=== PATIENT | male | born 1950 | race Caucasian/White ===

== ENCOUNTER 2018-03-27 17:12 | Emergency (ER) | payer OTHER ==
[2018-03-27 17:59] LABS: ADD MAN DIFF? NO
[2018-03-27 18:00] LABS: WHITE BLOOD COUNT 6.8 10^3/ul (4.8-10.8)
[2018-03-27 18:00] LABS: BASOPHIL # 0.1 10^3/ul (0.0-0.1); EOSINOPHILS # 0.1 10^3/ul (0.0-0.5); EOSINOPHILS % 1.8 % (0.0-7.0); HEMATOCRIT 24.1 % (42.0-52.0); HEMOGLOBIN 7.7 g/dl (14.0-18.0); LYMPHOCYTES # 1.3 10^3/ul (0.8-2.9); LYMPHOCYTES % 19.2 % (15.0-51.0); MEAN CORPUSCULAR HEMOGLOBIN 27.9 pg (29.0-33.0); MEAN CORPUSCULAR VOLUME 87.3 fl (82.0-101.0); MEAN PLATELET VOLUME 9.8 fl (7.4-10.4); MONOCYTE # 0.9 10^3/ul (0.3-0.9); MONOCYTES % 13.8 % (0.0-11.0); NEUTROPHIL # 4.3 10^3/ul (1.6-7.5); NEUTROPHILS % 63.9 % (39.0-77.0); PLATELET COUNT 174 10^3/UL (140-415); RED BLOOD COUNT 2.76 10^6/ul (4.70-6.10); RED CELL DISTRIBUTION WIDTH 16.8 % (11.5-14.5)
[2018-03-27 18:18] LABS: ALANINE AMINOTRANSFERASE 40 IU/L (13-69); ALBUMIN/GLOBULIN RATIO 1.03; ALKALINE PHOSPHATASE 140 IU/L (42-121); ANION GAP 14 (8-16); ASPARTATE AMINO TRANSFERASE 40 IU/L (15-46); BILIRUBIN,INDIRECT 0.4 mg/dl (0-1.1); BILIRUBIN,TOTAL 0.4 mg/dl (0.2-1.3); BLOOD UREA NITROGEN 15 mg/dl (7-20); CALCIUM 8.3 mg/dl (8.4-10.2); CARBON DIOXIDE 25 mmol/L (21-31); CHLORIDE 103 mmol/L (97-110); CREATININE 0.71 mg/dl (0.61-1.24); GLUCOSE 122 mg/dl (70-220); MAGNESIUM 1.6 mg/dl (1.7-2.5); POTASSIUM 3.6 mmol/L (3.5-5.1); SODIUM 138 mmol/L (135-144); TOTAL PROTEIN 5.9 g/dl (6.1-8.1)
[2018-03-27 18:25] LABS: PROTIME 15.4 Sec (11.9-14.9); PT RATIO 1.2
[2018-03-27 18:26] LABS: B-TYPE NATRIURETIC PEPTIDE 228 PG/ML (0-125); PARTIAL THROMBOPLASTIN TIME 30.5 Sec (25.0-35.0)
[2018-03-27] MEDS: MAGNESIUM OXIDE 400 MG TAB PO (20:03)
== END 2018-03-27 20:17 | disposition home or self-care (01) ==
LOC: E/R 20:17
DX: K74.60 Unspecified cirrhosis of liver (principal); R60.0 Localized edema; E83.42 Hypomagnesemia; D64.9 Anemia, unspecified; E11.9 Type 2 diabetes mellitus without complications
CPT/HCPCS: 36415; 71045; 76700; 80053; 83735; 83880; 85025; 85610; 85730; 93005; 93970; 99285-25

== ENCOUNTER 2018-07-20 09:18 | Day surgery (SDC) | payer OTHER ==
[2018-07-20] MEDS ORDERED: PROPOFOL 20 ML (10:16)
[2018-07-20] MEDS ORDERED: FENTAnyl 50 MCG/ML VIAL (10:16)
[2018-07-20] MEDS ORDERED: CEFAZOLIN 1 GM/50 ML (PMX) 50 ML IVPB (10:16)
[2018-07-20] MEDS ORDERED: EPHEDrine 50 MG INJ (10:36)
== END 2018-07-20 11:18 | disposition home or self-care (01) ==
LOC: GIL 09:18
DX: I85.00 Esophageal varices without bleeding (principal); K64.8 Other hemorrhoids; K76.6 Portal hypertension; K31.89 Other diseases of stomach and duodenum; K62.89 Other specified diseases of anus and rectum; D50.9 Iron deficiency anemia, unspecified; E11.9 Type 2 diabetes mellitus without complications
CPT/HCPCS: 43235; 82962

== ENCOUNTER 2018-08-03 09:08 | Inpatient (IN) | payer OTHER ==
[2018-08-03 11:10] LABS: ADD MAN DIFF? NO
[2018-08-03 11:13] LABS: WHITE BLOOD COUNT 7.8 10^3/ul (4.8-10.8)
[2018-08-03 11:13] LABS: BASOPHIL # 0.1 10^3/ul (0.0-0.1); BASOPHILS % 0.6 % (0.0-2.0); EOSINOPHILS # 0.1 10^3/ul (0.0-0.5); EOSINOPHILS % 1.7 % (0.0-7.0); HEMATOCRIT 27.4 % (42.0-52.0); HEMOGLOBIN 8.9 g/dl (14.0-18.0); LYMPHOCYTES # 0.9 10^3/ul (0.8-2.9); MEAN CORPUSCULAR HGB CONC 32.5 g/dl (32.0-37.0); MEAN PLATELET VOLUME 8.8 fl (7.4-10.4); MONOCYTE # 1.4 10^3/ul (0.3-0.9); NEUTROPHIL # 5.1 10^3/ul (1.6-7.5); PLATELET COUNT 165 10^3/UL (140-415); RED CELL DISTRIBUTION WIDTH 20.5 % (11.5-14.5)
[2018-08-03 11:32] LABS: INR 1.02; PROTIME 13.5 Sec (11.9-14.9); PT RATIO 1.1
[2018-08-03 11:33] LABS: PARTIAL THROMBOPLASTIN TIME 30.4 Sec (23.0-35.0)
[2018-08-03 11:36] LABS: ALANINE AMINOTRANSFERASE 40 IU/L (13-69); ALBUMIN 3.1 g/dl (3.3-4.9); ALBUMIN/GLOBULIN RATIO 0.96; ALKALINE PHOSPHATASE 358 IU/L (42-121); ANION GAP 11 (5-13); ASPARTATE AMINO TRANSFERASE 42 IU/L (15-46); BILIRUBIN,INDIRECT 0.4 mg/dl (0-1.1); BILIRUBIN,TOTAL 0.4 mg/dl (0.2-1.3); BLOOD UREA NITROGEN 13 mg/dl (7-20); CALCIUM 8.3 mg/dl (8.4-10.2); CARBON DIOXIDE 19 mmol/L (21-31); CHLORIDE 95 mmol/L (97-110); Estimated GFR > 60 mL/min (>60); GLUCOSE 196 mg/dl (70-220); LIPASE 322 U/L (23-300); POTASSIUM 4.7 mmol/L (3.5-5.1); SODIUM 125 mmol/L (135-144); TOTAL PROTEIN 6.3 g/dl (6.1-8.1)
[2018-08-03] MEDS ORDERED: ONDANSETRON 4 MG INJ IV ×2 (13:30→14:00)
[2018-08-03] MEDS ORDERED: ACETAMINOPHEN 325 MG TAB PO ×2 (13:30→14:00)
[2018-08-03] MEDS ORDERED: morphine 2 MG INJ IV (14:00)
[2018-08-03] MEDS ORDERED: HYDROCODONE/APAP (5/325) TAB PO (14:00)
[2018-08-03] MEDS ORDERED: NACL 0.9% 3 ML SYG IV (14:00)
[2018-08-03 15:50] LABS: URIC ACID 3.8 mg/dl (3.1-7.9)
[2018-08-03] MEDS ORDERED: DEXTROSE 50% 50 ML SYRINGE IV ×2 (16:00)
[2018-08-03] MEDS ORDERED: GLUCAGON 1 MG INJ IM (16:00)
[2018-08-03] MEDS ORDERED: GLUCOSE GEL 15 GRAM TUBE PO ×2 (16:00)
[2018-08-03] MEDS ORDERED: GLUCOSE GEL 15 GRAM TUBE BUCCAL (16:00)
[2018-08-03 17:03] LABS: ANION GAP 8 (5-13); BLOOD UREA NITROGEN 11 mg/dl (7-20); CALCIUM 8.2 mg/dl (8.4-10.2); CARBON DIOXIDE 19 mmol/L (21-31); CHLORIDE 97 mmol/L (97-110); CREATININE 0.47 mg/dl (0.61-1.24); Estimated GFR > 60 mL/min (>60); GLUCOSE 203 mg/dl (70-220); POTASSIUM 4.9 mmol/L (3.5-5.1); SODIUM 124 mmol/L (135-144)
[2018-08-03 17:11] LABS: ADD UMIC NO; UR ASCORBIC ACID NEGATIVE (NEGATIVE); UR BILIRUBIN (Dip) NEGATIVE (NEGATIVE); UR BLOOD (Dip) NEGATIVE (NEGATIVE); UR CLARITY CLEAR (CLEAR); UR COLOR YELLOW (YELLOW); UR GLUCOSE (Dip) NEGATIVE (NEGATIVE); UR KETONES (Dip) NEGATIVE (NEGATIVE); UR LEUKOCYTE ESTERASE (Dip) NEGATIVE Leu/ul (NEGATIVE); UR NITRITE (Dip) NEGATIVE (NEGATIVE); UR SPECIFIC GRAVITY (Dip) 1.021 (1.003-1.030); UR TOTAL PROTEIN (Dip) NEGATIVE (NEGATIVE); UR UROBILINOGEN (Dip) 2+ mg/dL (NEGATIVE)
[2018-08-03 17:21] LABS: OSMOLALITY,URINE 622 mOsm/kg (250-1200)
[2018-08-03 17:26] LABS: CREATININE,URINE RANDOM 113.31 mg/dl (20-370)
[2018-08-03 17:26] LABS: SODIUM,URINE RANDOM 62 mmol/L (30-90)
[2018-08-03 17:27] LABS: PROTEIN URINE < 5.0 mg/dl (0.0-11.9)
[2018-08-03] MEDS: INSULIN ASPART [NOVOLOG] 3 ML PEN SC ×3 (17:49→21:00)
[2018-08-03] MEDS: PROPRANOLOL 10 MG TAB PO (22:11)
[2018-08-03] MEDS: INSULIN GLARGINE [LANTus] (100 UNITS/ML) SYG SC (22:16)
[2018-08-04] MEDS: ACCU-CHEK XX (02:00)
[2018-08-04] MEDS: PANTOPRAZOLE (EC) 40 MG TAB PO (06:10)
[2018-08-04 06:41] LABS: ADD MAN DIFF? NO
[2018-08-04 06:45] LABS: WHITE BLOOD COUNT 6.9 10^3/ul (4.8-10.8)
[2018-08-04 06:45] LABS: BASOPHILS % 0.6 % (0.0-2.0); EOSINOPHILS # 0.2 10^3/ul (0.0-0.5); EOSINOPHILS % 2.2 % (0.0-7.0); HEMATOCRIT 23.3 % (42.0-52.0); HEMOGLOBIN 7.9 g/dl (14.0-18.0); LYMPHOCYTES # 1.1 10^3/ul (0.8-2.9); LYMPHOCYTES % 15.3 % (15.0-51.0); MEAN CORPUSCULAR HEMOGLOBIN 27.4 pg (29.0-33.0); MEAN CORPUSCULAR HGB CONC 33.9 g/dl (32.0-37.0); MEAN CORPUSCULAR VOLUME 80.9 fl (82.0-101.0); MEAN PLATELET VOLUME 8.9 fl (7.4-10.4); MONOCYTE # 1.2 10^3/ul (0.3-0.9); MONOCYTES % 17.5 % (0.0-11.0); NEUTROPHIL # 4.2 10^3/ul (1.6-7.5); NEUTROPHILS % 61.3 % (39.0-77.0); PLATELET COUNT 156 10^3/UL (140-415); RED BLOOD COUNT 2.88 10^6/ul (4.70-6.10); RED CELL DISTRIBUTION WIDTH 19.9 % (11.5-14.5)
[2018-08-04 06:53] LABS: HEMOGLOBIN A1C 8.1 % (0-5.9)
[2018-08-04 07:09] LABS: PHOSPHORUS 4.2 mg/dl (2.5-4.9)
[2018-08-04 07:09] LABS: LIPASE 278 U/L (23-300)
[2018-08-04 07:12] LABS: ALANINE AMINOTRANSFERASE 41 IU/L (13-69); ALBUMIN 2.6 g/dl (3.3-4.9); ALBUMIN/GLOBULIN RATIO 1.04; ALKALINE PHOSPHATASE 203 IU/L (42-121); ANION GAP 8 (5-13); ASPARTATE AMINO TRANSFERASE 36 IU/L (15-46); BILIRUBIN,INDIRECT 0.5 mg/dl (0-1.1); BILIRUBIN,TOTAL 0.5 mg/dl (0.2-1.3); BLOOD UREA NITROGEN 10 mg/dl (7-20); CARBON DIOXIDE 20 mmol/L (21-31); CHLORIDE 98 mmol/L (97-110); CREATININE 0.52 mg/dl (0.61-1.24); Estimated GFR > 60 mL/min (>60); GLUCOSE 112 mg/dl (70-220); MAGNESIUM 1.6 mg/dl (1.7-2.5); POTASSIUM 4.5 mmol/L (3.5-5.1); SODIUM 126 mmol/L (135-144); TOTAL PROTEIN 5.1 g/dl (6.1-8.1)
[2018-08-04] MEDS: INSULIN ASPART [NOVOLOG] 3 ML PEN SC ×7 (07:55→20:57)
[2018-08-04] MEDS: PROPRANOLOL 10 MG TAB PO ×2 (08:16→20:58)
[2018-08-04] MEDS: FUROSEMIDE 20 MG INJ IV (10:14)
[2018-08-04 16:47] LABS: CREATININE, RANDOM URINE 108 mg/dL (20-320); MICROALBUMIN 1.1 mg/dL; MICROALBUMIN/CREATININE RATIO 10 (<30)
[2018-08-04] MEDS: INSULIN GLARGINE [LANTus] (100 UNITS/ML) SYG SC (21:14)
[2018-08-05] MEDS: ACCU-CHEK XX (02:00)
[2018-08-05] MEDS: FUROSEMIDE 20 MG INJ IV (05:38)
[2018-08-05] MEDS: PANTOPRAZOLE (EC) 40 MG TAB PO (05:38)
[2018-08-05 07:40] LABS: ANION GAP 8 (5-13); BLOOD UREA NITROGEN 14 mg/dl (7-20); CALCIUM 8.2 mg/dl (8.4-10.2); CARBON DIOXIDE 21 mmol/L (21-31); CHLORIDE 97 mmol/L (97-110); CREATININE 0.59 mg/dl (0.61-1.24); Estimated GFR > 60 mL/min (>60); GLUCOSE 131 mg/dl (70-220); MAGNESIUM 1.6 mg/dl (1.7-2.5); PHOSPHORUS 4.6 mg/dl (2.5-4.9); POTASSIUM 4.4 mmol/L (3.5-5.1); SODIUM 126 mmol/L (135-144)
[2018-08-05] MEDS: INSULIN ASPART [NOVOLOG] 3 ML PEN SC ×7 (07:55→20:28)
[2018-08-05] MEDS: PROPRANOLOL 10 MG TAB PO ×2 (08:04→20:28)
[2018-08-05] MEDS: SOD CHLORIDE 0.9% 500 ML IV (08:12)
[2018-08-05] MEDS: SPIRONOLACTONE 50 MG TAB PO (13:17)
[2018-08-05] MEDS: INSULIN GLARGINE [LANTus] (100 UNITS/ML) SYG SC (21:25)
[2018-08-05] MEDS ORDERED: VITAMIN A & D 5 GM OINT PACKET TOP (21:34)
[2018-08-06] MEDS: ACCU-CHEK XX (02:00)
[2018-08-06] MEDS: SPIRONOLACTONE 50 MG TAB PO (05:30)
[2018-08-06] MEDS: PANTOPRAZOLE (EC) 40 MG TAB PO (05:30)
[2018-08-06] MEDS: FUROSEMIDE 20 MG INJ IV (05:31)
[2018-08-06 07:42] LABS: ANION GAP 9 (5-13); BLOOD UREA NITROGEN 16 mg/dl (7-20); CALCIUM 8.3 mg/dl (8.4-10.2); CARBON DIOXIDE 19 mmol/L (21-31); CHLORIDE 99 mmol/L (97-110); CREATININE 0.72 mg/dl (0.61-1.24); Estimated GFR > 60 mL/min (>60); GLUCOSE 121 mg/dl (70-220); MAGNESIUM 1.7 mg/dl (1.7-2.5); PHOSPHORUS 4.4 mg/dl (2.5-4.9); POTASSIUM 4.3 mmol/L (3.5-5.1); SODIUM 127 mmol/L (135-144)
[2018-08-06] MEDS: PROPRANOLOL 10 MG TAB PO ×2 (07:44→20:12)
[2018-08-06] MEDS: INSULIN ASPART [NOVOLOG] 3 ML PEN SC ×7 (07:48→20:11)
[2018-08-06] MEDS: INSULIN GLARGINE [LANTus] (100 UNITS/ML) SYG SC (20:22)
[2018-08-07] MEDS: ACCU-CHEK XX (02:23)
[2018-08-07] MEDS: FUROSEMIDE 20 MG INJ IV (05:44)
[2018-08-07] MEDS: SPIRONOLACTONE 50 MG TAB PO (05:44)
[2018-08-07] MEDS: PANTOPRAZOLE (EC) 40 MG TAB PO (05:44)
[2018-08-07 06:22] LABS: ADD MAN DIFF? NO
[2018-08-07 06:24] LABS: WHITE BLOOD COUNT 7.4 10^3/ul (4.8-10.8)
[2018-08-07 06:24] LABS: BASOPHIL # 0.1 10^3/ul (0.0-0.1); BASOPHILS % 0.8 % (0.0-2.0); EOSINOPHILS # 0.2 10^3/ul (0.0-0.5); HEMATOCRIT 27.9 % (42.0-52.0); HEMOGLOBIN 9.2 g/dl (14.0-18.0); LYMPHOCYTES # 1.5 10^3/ul (0.8-2.9); LYMPHOCYTES % 19.8 % (15.0-51.0); MEAN CORPUSCULAR HEMOGLOBIN 27.6 pg (29.0-33.0); MEAN CORPUSCULAR VOLUME 83.8 fl (82.0-101.0); MONOCYTE # 1.3 10^3/ul (0.3-0.9); MONOCYTES % 17.5 % (0.0-11.0); NEUTROPHIL # 4.3 10^3/ul (1.6-7.5); NEUTROPHILS % 57.7 % (39.0-77.0); PLATELET COUNT 180 10^3/UL (140-415); RED BLOOD COUNT 3.33 10^6/ul (4.70-6.10)
[2018-08-07 06:55] LABS: ANION GAP 8 (5-13); BLOOD UREA NITROGEN 19 mg/dl (7-20); CALCIUM 8.6 mg/dl (8.4-10.2); CARBON DIOXIDE 22 mmol/L (21-31); CHLORIDE 101 mmol/L (97-110); CREATININE 0.82 mg/dl (0.61-1.24); Estimated GFR > 60 mL/min (>60); GLUCOSE 92 mg/dl (70-220); MAGNESIUM 1.8 mg/dl (1.7-2.5); PHOSPHORUS 4.6 mg/dl (2.5-4.9); POTASSIUM 4.7 mmol/L (3.5-5.1); SODIUM 131 mmol/L (135-144)
[2018-08-07] MEDS: INSULIN ASPART [NOVOLOG] 3 ML PEN SC ×7 (07:55→20:46)
[2018-08-07] MEDS: PROPRANOLOL 10 MG TAB PO ×2 (08:37→20:36)
[2018-08-07] MEDS: COSYNTROPIN 0.25 MG INJ IV (10:31)
[2018-08-07] MEDS: INSULIN GLARGINE [LANTus] (100 UNITS/ML) SYG SC (20:46)
[2018-08-08] MEDS: ACCU-CHEK XX (02:00)
[2018-08-08] MEDS: SPIRONOLACTONE 50 MG TAB PO (06:18)
[2018-08-08] MEDS: PANTOPRAZOLE (EC) 40 MG TAB PO (06:18)
[2018-08-08] MEDS: FUROSEMIDE 20 MG INJ IV (06:18)
[2018-08-08] MEDS: INSULIN ASPART [NOVOLOG] 3 ML PEN SC ×6 (07:55→16:49)
[2018-08-08] MEDS: PROPRANOLOL 10 MG TAB PO (08:06)
[2018-08-08 09:03] LABS: ANION GAP 9 (5-13); BLOOD UREA NITROGEN 18 mg/dl (7-20); CALCIUM 8.7 mg/dl (8.4-10.2); CARBON DIOXIDE 21 mmol/L (21-31); CHLORIDE 101 mmol/L (97-110); Estimated GFR > 60 mL/min (>60); GLUCOSE 101 mg/dl (70-220); MAGNESIUM 1.9 mg/dl (1.7-2.5); PHOSPHORUS 4.8 mg/dl (2.5-4.9); SODIUM 131 mmol/L (135-144)
== END 2018-08-08 18:42 | disposition home health service (06) | DRG 432 ==
LOC: TEL 08-05 22:06 → E/R 09:08 → 2NE 13:10 → TEL 19:20
PROVIDERS: Internal Medicine
DX: K74.60 Unspecified cirrhosis of liver (principal); K85.90 Acute pancreatitis without necrosis or infection, unspecified; E87.1 Hypo-osmolality and hyponatremia; R18.8 Other ascites; E27.40 Unspecified adrenocortical insufficiency; E87.5 Hyperkalemia; E11.9 Type 2 diabetes mellitus without complications; D64.9 Anemia, unspecified; K80.20 Calculus of gallbladder without cholecystitis without obstruction; Z79.4 Long term (current) use of insulin
CPT/HCPCS: 74176; 76705; 80048; 80053; 81003; 82043; 82533; 82962; 83036; 83690; 83735; 83935; 84100; 84155; 84300; 84443; 84560; 85025; 85610; 85730; 93306; 93970; 99285-25

== ENCOUNTER 2018-08-25 13:33 | Emergency (ER) | payer OTHER | END 2018-08-25 15:56 | disposition home or self-care (01) | LOC: FTE 13:33 | DX: R04.0 Epistaxis (principal); E11.9 Type 2 diabetes mellitus without complications; Z79.84 Long term (current) use of oral hypoglycemic drugs | CPT/HCPCS: 99282 ==

== ENCOUNTER 2018-09-27 09:50 | Emergency (ER) | payer OTHER | END 2018-09-27 11:10 | disposition home or self-care (01) | LOC: FTE 09:50 | DX: R04.0 Epistaxis (principal); E11.9 Type 2 diabetes mellitus without complications; I10 Essential (primary) hypertension | CPT/HCPCS: 30903; 99283-25 ==

== ENCOUNTER → 2018-09-28 | Emergency (ER) | payer OTHER ==
[2018-09-28] MEDS: OXYMETAZOLINE 0.05% 15 ML NAS SPRAY NASAL (11:32)
== END | disposition home or self-care (01) ==
LOC: FTE 10:13
DX: R04.0 Epistaxis (principal); I10 Essential (primary) hypertension; E11.9 Type 2 diabetes mellitus without complications; Z48.00 Encounter for change or removal of nonsurgical wound dressing
CPT/HCPCS: 99283